=== PATIENT | female | born 1965 | race Caucasian/White ===

== ENCOUNTER 2021-11-23 08:32 | Day surgery (SDC) | payer MEDICAID ==
[2021-11-22 08:40] VITALS: BP 123/59
[~2021-11-23] VITALS: Ht 165.1 cm; Wt 79.8 kg
[2021-11-23] VITALS (13 sets, daily range): BP systolic 82–125; BP diastolic 44–59
[2021-11-23] MEDS ORDERED: MESSAGE TO PHARMACY PO ONE (08:50)
[2021-11-23] MEDS ORDERED: ROSU40TA22 PO (08:50)
[2021-11-23] MEDS ORDERED: CLOP75TA34 PO (08:50)
[2021-11-23] MEDS ORDERED: PANT40TA54 PO (08:50)
[2021-11-23] MEDS ORDERED: dextrose ORAL solution 15 GM/59 ML bottle PO PRN ×2 (08:50)
[2021-11-23] MEDS ORDERED: dextrose 50%-water 50ml dispensing syringe IV PRN ×2 (08:50)
[2021-11-23] MEDS ORDERED: ATEN50TA8 PO (08:50)
[2021-11-23] MEDS ORDERED: TRIA454O TOP (08:50)
[2021-11-23] MEDS ORDERED: glucagon, human recombinant 1mg kit SUBCUT PRN (08:50)
[2021-11-23] MEDS ORDERED: LORazepam 0.5 MG tablet PO PRN (08:50)
[2021-11-23] MEDS ORDERED: insulin Lispro (HumaLOG) vial - multi-dose SQ SCH (08:50)
[2021-11-23] MEDS ORDERED: normal saline 1,000 ML IV SCH (08:50)
[2021-11-23] MEDS ORDERED: EVOL140P3 SQ (08:50)
[2021-11-23] MEDS ORDERED: RANO10005 PO (08:50)
[2021-11-23] MEDS ORDERED: EZET10TA48 PO (08:50)
[2021-11-23] MEDS ORDERED: diphenhydrAMINE 25mg capsule PO PRN (08:50)
[2021-11-23] MEDS ORDERED: ASPI-1071 PO (08:51)
[2021-11-23 09:51] LABS: BASOPHILS # (AUTO) 0.1 X10'3 (0-0.2); BASOPHILS % (AUTO) 1.7 % (0-1); EOSINOPHILS # (AUTO) 0.3 X10'3 (0-0.9); EOSINOPHILS % (AUTO) 3.4 % (0-6); HEMATOCRIT 40.5 % (35.0-45.0); HEMOGLOBIN 13.3 g/dl (12.0-16.0); LYMPHOCYTES # (AUTO) 2.6 X10'3 (1.1-4.8); LYMPHOCYTES % (AUTO) 33.9 % (21-51); MEAN CORPUSCULAR HEMOGLOBIN 27.7 PG (27.0-31.0); MEAN CORPUSCULAR HGB CONC 32.9 g/dL (33.0-36.5); MEAN CORPUSCULAR VOLUME 84.2 FL (78-98); MEAN PLATELET VOLUME 8.6 FL (7.4-10.4); MONOCYTES # (AUTO) 0.6 X10'3 (0-0.9); MONOCYTES % (AUTO) 8.2 % (2-12); NEUTROPHILS % (AUTO) 52.8 % (42-75); PLATELET COUNT 200 X10'3 (140-440); RED BLOOD COUNT 4.81 X10'6 (4.20-5.60); RED CELL DISTRIBUTION WIDTH 12.6 % (11.5-14.5); WHITE BLOOD COUNT 7.7 X10'3 (4.5-11.0)
--- NOTE | 2021-11-23 10:00 | NUR ---
Received call from [facility] notified of delay in procedure start time due to doing more urgent patient. Updated pt and family of delay in procedure time, verbalized understanding.
[2021-11-23 10:23] LABS: APTT 29 SECONDS (22-32)
[2021-11-23 10:25] LABS: ALBUMIN 3.9 G/DL (3.4-5.0); ANION GAP 9 (8-16); BLOOD UREA NITROGEN 16 MG/DL (7-18); BUN/CREATININE RATIO 17.4 (6.6-38.0); CALCIUM 8.5 MG/DL (8.5-10.1); CHLORIDE 107 MMOL/L (99-107); CREATININE 0.92 MG/DL (0.40-0.90); GLUCOSE 102 MG/DL (70-104); SODIUM 141 MMOL/L (135-145); TOTAL CARBON DIOXIDE 25.3 MMOL/L (24-32); eGFR 63 ML/MIN
[2021-11-23] MEDS ORDERED: midazolam 1 mg/ML 2ml injection ONE ×2 (11:02→11:35)
[2021-11-23] MEDS ORDERED: iohexol 350 MG/ML 50ML vial IV ONE (11:03)
[2021-11-23] MEDS ORDERED: fentaNYL/PF 50MCG/1 ML 2ML syringe ONE (11:03)
[2021-11-23] MEDS ORDERED: LIDOcaine 1% (10mg/ml)w/preservative injection 20ml MDV ONE (11:03)
[2021-11-23] MEDS ORDERED: iohexol 350MG/ML 100ml bottle IV ONE (11:03)
[2021-11-23] MEDS ORDERED: nitroGLYCERIN 0.4mg SUBLingual tab SL PRN (12:35)
[2021-11-23] MEDS ORDERED: ondansetron/PF 4mg/2ml inj IV PRN (12:35)
[2021-11-23] MEDS ORDERED: proCHLORperazine 10 MG/2 ml inj IV PRN (12:35)
[2021-11-23] MEDS ORDERED: normal saline 1000ml 1,000 ML IV SCH (12:35)
[2021-11-23] MEDS ORDERED: HYDROcodone/acetaminophen 10/325mg tab PO PRN (12:35)
[2021-11-23] MEDS ORDERED: OXAZEpam 15mg capsule PO PRN (12:35)
[2021-11-23] MEDS ORDERED: HYDROcodone/acetaminophen 5mg/325mg tablet PO PRN (12:35)
[2021-11-23] MEDS ORDERED: HYDROmorphone 1 mg/ml syringe IV PRN (13:20)
--- NOTE | 2021-11-23 17:50 | NUR ---
PIV DC cath intact. VSS. Right groin site stable, no bleeding, bruising or hematoma noted. DC to home with family. Transferred to private car via WC, pt able to transfer self to car, gait steady.
[2021-11-23] MEDS ORDERED: insulin glargine (Lantus) pen - multi-dose SQ SCH (21:00)
== END 2021-11-23 18:05 | disposition home or self-care (01) ==
LOC: SSTAY O 08:32
PROVIDERS: ATTEND Internal Medicine Cardiovascular Disease
DX: R94.39 Abnormal result of other cardiovascular function study (principal); I25.810 Atherosclerosis of coronary artery bypass graft(s) without angina pectoris; I25.2 Old myocardial infarction; K21.9 Gastro-esophageal reflux disease without esophagitis; I10 Essential (primary) hypertension; E78.5 Hyperlipidemia, unspecified; F17.210 Nicotine dependence, cigarettes, uncomplicated; F12.90 Cannabis use, unspecified, uncomplicated; Z79.01 Long term (current) use of anticoagulants; Z79.899 Other long term (current) drug therapy; Z90.710 Acquired absence of both cervix and uterus; Z96.651 Presence of right artificial knee joint; Z96.611 Presence of right artificial shoulder joint
CPT/HCPCS: 36415; 71046; 80048; 83036; 85025; 85610; 85730; 93005; 93459; 99152; C1760; C1769; J1170; J1644; J2250; J3010; J3490; J7030; Q0163; Q9967; 99153; A4620; A6258; J1815